=== PATIENT | female | born 1990 | race Caucasian/White ===

== ENCOUNTER 2017-09-16 11:08 | Emergency (ER) | payer BC, OTHER ==
[2017-09-16 14:37] LABS: ABS Basophils 0.1 10^3/ul (0-0.2); ABS Eosinophils 0.1 10^3/ul (0-0.6); ABS Lymphocytes 1.8 10^3/ul (1.0-4.8); ABS Monocytes 0.2 10^3/ul (0-0.8); ABS Neutrophils 2.9 10^3/ul (1.5-7.7); ABS Nucleated RBC 0.01 10^3/ul; Eosinophil % 1.7 % (0-6); Hematocrit 39 % (35-47); Hemoglobin 13.3 g/dl (12.0-16.0); Lymphocyte % 36.1 % (25-47); Mean Corpuscular HGB Conc 34 g/dl (31-36); Mean Corpuscular Hemoglobin 28 pg (27-31); Mean Corpuscular Volume 82 fL (80-97); Mean Platelet Volume 9 um3 (7.4-10.4); Nucleated Red Blood Cells % 0.2; Platelet Count 184 10^3/ul (150-450); Red Blood Count 4.79 10^6/ul (4.0-5.4); Red Cell Distribution Width 13 % (10.5-15); White Blood Count 5.1 10^3/ul (3.5-10.8)
[2017-09-16 14:53] LABS: EGFR Non-African American 97.1 (>60)
[2017-09-16 16:22] VITALS: BP 110/72
--- NOTE | 2017-09-25 13:43 | ED ---
- HPI Summary HPI Summary: Pt here w/ blood exposure to eye earlier today. 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 She finished the blood draw then removed her contact lens from her eye. Did not perform eye wash irrigation. Has not replaced her contact since incident. Here for evaluation. Denies pain, irritation or change in vision in this eye. She is unaware of the pt's ID status but has means to identify her. Pt denies personal h/o infectious dz process in her own body. - History of Current Complaint Chief Complaint: EDEyeProblem Stated Complaint: BLOOD IN RIGHT EYE Time Seen by Provider: 09/16/17 13:38 PMH/Surg Hx/FS Hx/Imm Hx Previously Healthy: Yes Endocrine/Hematology History: Denies: Hx Anticoagulant Therapy, Hx Blood Disorders, Autoimmune Disease - Immunization History Immunizations Up to Date: Yes Infectious Disease History: No Infectious Disease History: Denies: Hx Hepatitis, Hx Human Immunodeficiency Virus (HIV), Traveled Outside the [place] in Last 30 Days - Family History Known Family History: Positive: None - Social History Occupation: Employed Full-time Lives: With Family Alcohol Use: None Hx Substance Use: No Substance Use Type: Reports: None Hx Tobacco Use: No Smoking Status (MU): Never Smoked Tobacco Review of Systems Constitutional: Negative Eyes: Negative Negative: Photophobia, Blurred Vision, Diplopia Negative: Vomiting, Nausea Positive: no symptoms reported Musculoskeletal: Negative Skin: Negative Negative: Rash - no rash on/about eye/face Neurological: Negative Negative: Headache Psychological: Normal All Other Systems Reviewed And Are Negative: Yes Physical Exam Triage Information Reviewed: Yes Vital Signs On Initial Exam: Initial Vitals Temp Pulse Resp BP Pulse Ox 98.9 F 100 18 104/78 98 09/16/17 11:20 09/16/17 11:20 09/16/17 11:20 09/16/17 11:20 09/16/17 11:20 Vital Signs Reviewed: Yes Appearance: Positive: Well-Appearing, No Pain Distress, Well-Nourished Skin: Positive: Warm, Dry - no orbital skin changes Head/Face: Positive: Normal Head/Face Inspection Eyes: Positive: Normal, EOMI, HETAL, Conjunctiva Clear, Other: - no apparent trauma to the eye. Negative: Conjunctiva Inflammed, Discharge ENT: Positive: Normal ENT inspection, Hearing grossly normal, Pharynx normal Neck: Positive: Supple Respiratory/Lung Sounds: Positive: Breath Sounds Present Cardiovascular: Positive: Normal Musculoskeletal: Positive: Normal, Strength/ROM Intact Neurological: Positive: Normal, Alert, Oriented to Person Place, Time, CN Intact II-III Psychiatric: Positive: Normal - [place] Coma Scale Coma Scale Total: 15 Diagnostics - Vital Signs Vital Signs Temp Pulse Resp BP Pulse Ox 09/16/17 16:19 88 18 110/72 100 09/16/17 11:20 98.9 F 100 18 104/78 98 - Laboratory Lab Results: Lab Results 09/16/17 09/16/17 09/16/17 Range/Units 14:20 14:20 14:20 WBC 5.1 (3.5-10.8) 10^3/ul RBC 4.79 (4.0-5.4) 10^6/ul Hgb 13.3 (12.0-16.0) g/dl Hct 39 (35-47) % MCV 82 (80-97) fL MCH 28 (27-31) pg MCHC 34 (31-36) g/dl RDW 13 (10.5-15) % Plt Count 184 (150-450) 10^3/ul MPV 9 (7.4-10.4) um3 Neut % (Auto) 56.7 (38-83) % Lymph % (Auto) 36.1 (25-47) % [place] % (Auto) 4.3 (1-9) % Eos % (Auto) 1.7 (0-6) % Baso % (Auto) 1.2 (0-2) % Absolute Neuts (auto) 2.9 (1.5-7.7) 10^3/ul Absolute Lymphs (auto) 1.8 (1.0-4.8) 10^3/ul Absolute Monos (auto) 0.2 (0-0.8) 10^3/ul Absolute Eos (auto) 0.1 (0-0.6) 10^3/ul Absolute Basos (auto) 0.1 (0-0.2) 10^3/ul Absolute Nucleated RBC 0.01 10^3/ul Nucleated RBC % 0.2 Sodium 137 (133-145) mmol/L Potassium 4.0 (3.5-5.0) mmol/L Chloride 103 (101-111) mmol/L Carbon Dioxide 30 (22-32) mmol/L Anion Gap 4 (2-11) mmol/L BUN 11 (6-24) mg/dL Creatinine 0.73 (0.51-0.95) mg/dL Est GFR ( Amer) 124.9 (>60) Est GFR (Non-Af Amer) 97.1 (>60) BUN/Creatinine Ratio 15.1 (8-20) Glucose 90 (70-100) mg/dL Calcium 9.2 (8.6-10.3) mg/dL Total Bilirubin 0.40 (0.2-1.0) mg/dL AST 13 (13-39) U/L ALT 9 (7-52) U/L Alkaline Phosphatase 35 (34-104) U/L Total Protein 6.4 (6.4-8.9) g/dL Albumin 4.0 (3.2-5.2) g/dL Globulin 2.4 (2-4) g/dL Albumin/Globulin Ratio 1.7 (1-3) Beta HCG, Quant < 0.60 mIU/mL Hepatitis B Antibody Reactive (Nonreactive) Hep Bs Antigen Nonreactive (Nonreactive) Hep Bs Antibody, Quant 274.93 (<12) mIU/mL Hepatitis C Antibody Nonreactive (Nonreactive) HIV 1&2 Antibody Rapid Nonreactive (Nonreactive) Result Diagrams: 09/16/17 14:20 09/16/17 14:20 Lab Statement: Any lab studies that have been ordered have been reviewed, and results considered in the medical decision making process. Needlestick Course/Dx - Course Course Of Treatment: Immediate eye lavage ordered for pt. After attaining source pt's permission and HIV status which was negative, it was discussed with pt that her risk for attaining HIV at this time was exceptionally low and although PEP could be initiated if she would feel more comfortable, it was not highly recommended. Pt declined PEP and agrees to f/u w/ PCP/ID for f/u testing. Encouraged to refrain from replacing contact lens into affected eye and continue saline eye washes for 24 hours to encourage removal of any substance on mucous membrane here as well as sooth eye shoulder she develop irritation (she has none at present). Pt aware of risks of body fluid/blood exposure and agrees to f/u as directed. - Diagnoses Provider Diagnoses: Employee exposure to blood Discharge - Discharge Plan Condition: Stable Disposition: HOME Referrals: Josy Crawford MD [Primary Care Provider] - Additional Instructions: The bloody body fluid exposure to your eye is a low risk exposure based on this specific case. PEP is not recommended at this time however it is important that you follow-up with your PCP to review labs results and discuss follow-up testing. If you develop redness, swelling, irritation of your eye, seek medical attention. Flush eye with saline 3 more times today and avoid replacing contact lens until tomorrow. Use new contact lenses.
== END 2017-09-16 16:19 | disposition home or self-care (01) ==
LOC: ED 11:08
DX: Z77.21 Contact with and (suspected) exposure to potentially hazardous body fluids (principal)
CPT/HCPCS: 36415; 80053; 84702; 85025; 86703; 86706; 86803; 87340; 99283